=== PATIENT | male | born 1940 | race Caucasian/White ===

== ENCOUNTER 2017-12-30 17:12 | Emergency (ER) | payer MEDICARE, BC ==
[2017-12-30] MEDS ORDERED: Aspirin 81 MG Tab.Chew PO ONE (17:24)
[2017-12-30] MEDS ORDERED: Morphine 4 MG/ML Syringe IVPUSH PRN (17:24)
[2017-12-30] MEDS ORDERED: Clopidogrel 75 MG Tab PO ONE (17:24)
[2017-12-30] MEDS ORDERED: Sodium Chloride 0.9% 10 ML Syringe FLUSH PRN ×2 (17:24)
[2017-12-30] MEDS ORDERED: Heparin Sodium 5,000 Units/ML Vial IVPUSH ONE (17:24)
[2017-12-30] MEDS ORDERED: Metoprolol Tartrate 50 MG Tab PO ONE (17:24)
[2017-12-30] MEDS ORDERED: Heparin Sodium/D5W 25,000 UNITS/500 ML BAG IV SCH (17:30)
[2017-12-30] MEDS: Nitroglycerin 0.4 MG Tab.SL SL PRN ×2 (17:34→17:47)
--- NOTE | 2017-12-30 17:51 | EDM.PDOC ---
ED HPI GENERAL MEDICAL PROBLEM - General Chief Complaint: Chest Pain Stated Complaint: CHEST PAIN Time Seen by Provider: 12/30/17 17:23 Source of Information: Reports: Patient, Family, RN Notes Reviewed History Limitations: Reports: No Limitations - History of Present Illness INITIAL COMMENTS - FREE TEXT/NARRATIVE: 77-year-old gentleman presents to the emergency department today complaint of chest pressure, he is from [place] area had just completed a long trip had went to the bathroom sudden onset of chest pressure rated it 5 out of 10 he had radiations into both arms and up into the neck there was no shortness of breath no diaphoresis no nausea, past cardiac history includes atrial fibrillation status post ablation 2, dyslipidemia and hypertension. Some relief of the chest pressure with lying down Upper Chest Pain Score (Numeric/FACES): 5 - Related Data Allergies Allergy/AdvReac Type Severity Reaction Status Date / Time Penicillins Allergy Swelling Verified 12/30/17 17:46 Home Meds: Home Meds Aspirin [Rhianna Chewable] 81 mg PO DAILY 12/30/17 [History] Metoprolol Succinate 50 mg PO DAILY 12/30/17 [History] Niacin 500 mg PO BEDTIME 12/30/17 [History] [place]-3/DHA/Epa/Fish Oil [[place]-3 Fish Oil 1,200 MG Sfgl] 1,200 mg PO DAILY 05/09 [History] Pantoprazole 40 mg PO DAILY 12/30/17 [History] Sotalol [Betapace, Sorine] 80 mg PO BID 12/30/17 [History] amLODIPine Besylate [Amlodipine Besylate] 5 mg PO DAILY 12/30/17 [History] atorvaSTATin [Lipitor] 10 mg PO BEDTIME 12/30/17 [History] Past Medical History Cardiovascular History: Reports: Afib (Status post ablation), High Cholesterol, Hypertension Musculoskeletal History: Reports: Back Pain, Chronic Neurological History: Reports: Other (See Below) (Foot drop right side) Social & Family History - Tobacco Use Smoking Status *Q: Never Smoker ED ROS GENERAL - Review of Systems Review Of Systems: See Below Constitutional: Reports: No Symptoms Respiratory: Reports: No Symptoms Cardiovascular: Reports: Chest Pain GI/Abdominal: Reports: No Symptoms : Reports: No Symptoms Musculoskeletal: Reports: No Symptoms Skin: Reports: No Symptoms Neurological: Reports: Other (Radiations down both arms and into the neck) ED EXAM, GENERAL - Physical Exam Exam: See Below Exam Limited By: No Limitations General Appearance: Alert, Mild Distress Neck: Normal Inspection, Supple, Non-Tender, Full Range of Motion Respiratory/Chest: No Respiratory Distress, Lungs Clear, Normal Breath Sounds, No Accessory Muscle Use, Chest Non-Tender Cardiovascular: Regular Rate, Rhythm, No Murmur GI/Abdominal: Soft, Non-Tender EKG INTERPRETATION EKG Date: 12/30/17 Rhythm: NSR ST-T: Elevated Comparison: NA - No Prior EKG Course - Vital Signs Last Recorded V/S: Last Vital Signs Temp 98.4 F 12/30/17 17:14 Pulse 66 12/30/17 17:32 Resp 12 12/30/17 17:28 BP 127/78 12/30/17 17:47 Pulse Ox 98 12/30/17 17:28 - Orders/Labs/Meds Orders: Active Orders 24 hr Category Date Time Status EKG Documentation Completion [RC] ASDIRECTED Care 12/30/17 17:25 Ordered Peripheral IV Care [RC] . DIRECTED Care 12/30/17 17:25 Ordered Chest 1V Frontal [CR] Urgent Exams 12/30/17 17:25 Ordered Heparin Sodium/D5W [Heparin 25,000 Units in D5W 500 ML] Med 12/30/17 17:30 Ordered 25,000 units in 500 ml IV TITRATE Morphine Med 12/30/17 17:24 Ordered 4 mg IVPUSH Q10M PRN Nitroglycerin [Nitrostat] Med 12/30/17 17:24 Ordered 0.4 mg SL Q5M PRN Sodium Chloride 0.9% [Saline Flush] Med 12/30/17 17:24 Ordered 10 ml FLUSH ASDIRECTED PRN Sodium Chloride 0.9% [Saline Flush] Med 12/30/17 17:24 Ordered 10 ml FLUSH ASDIRECTED PRN Peripheral IV Insertion Adult [OM.PC] Stat Oth 12/30/17 17:24 Ordered EKG 12 Lead [EK] Stat Ther 12/30/17 17:24 Ordered Medication Orders Heparin Sodium/Dextrose (Heparin 25,000 Units In D5w 500 Ml) 25,000 units in 500 mls @ 0 mls/hr IV TITRATE JOSSELINE; Protocol Morphine Sulfate (Morphine) 4 mg IVPUSH Q10M PRN PRN Reason: Chest Pain Stop: 12/31/17 17:24 Nitroglycerin (Nitrostat) 0.4 mg SL Q5M PRN PRN Reason: Chest Pain Stop: 12/31/17 17:24 Last Admin: 12/30/17 17:34 Dose: 0.4 mg Sodium Chloride (Saline Flush) 10 ml FLUSH ASDIRECTED PRN PRN Reason: Keep Vein Open Sodium Chloride (Saline Flush) 10 ml FLUSH ASDIRECTED PRN PRN Reason: Keep Vein Open Meds: Medications Generic Name Dose Route Start Last Admin Trade Name Freq PRN Reason Stop Dose Admin Heparin Sodium/Dextrose 25,000 units in 500 mls @ 0 mls/hr 12/30/17 17:30 Heparin 25,000 Units In D5w 500 Ml IV TITRATE JOSSELINE Protocol 12 UNITS/KG/HR Morphine Sulfate 4 mg 12/30/17 17:24 Morphine IVPUSH 12/31/17 17:24 Q10M PRN Chest Pain Nitroglycerin 0.4 mg 12/30/17 17:24 12/30/17 17:47 Nitrostat SL 12/31/17 17:24 0.4 mg Q5M PRN Administration Chest Pain Sodium Chloride 10 ml 12/30/17 17:24 Saline Flush FLUSH ASDIRECTED PRN Keep Vein Open Sodium Chloride 10 ml 12/30/17 17:24 Saline Flush FLUSH ASDIRECTED PRN Keep Vein Open Discontinued Medications Generic Name Dose Route Start Last Admin Trade Name Fre[place]ler PRN Reason Stop Dose Admin Aspirin 324 mg 12/30/17 17:24 12/30/17 17:30 Aspirin PO 12/30/17 17:25 324 mg ONETIME ONE Administration Clopidogrel Bisulfate 600 mg 12/30/17 17:24 12/30/17 17:32 Plavix PO 12/30/17 17:25 600 mg ONETIME ONE Administration Heparin Sodium (Porcine) 0 units 12/30/17 17:24 12/30/17 17:31 Heparin Sodium IVPUSH 12/30/17 17:25 4,000 units .BOLUS ONE Administration Metoprolol Tartrate 25 mg 12/30/17 17:24 12/30/17 17:32 Lopressor PO 12/30/17 17:25 25 mg ONETIME ONE Administration Departure - Departure Time of Disposition: 17:47 Disposition: DC/Tfer to Acute Hospital 02 Reason for Transfer *Q: Primary PCI Indicated Condition: Fair Clinical Impression: STEMI (ST elevation myocardial infarction) Qualifiers: Involved coronary artery: right coronary artery Qualified Code(s): I21.11 - ST elevation (STEMI) myocardial infarction involving right coronary artery Referrals: PCP,None [Primary Care Provider] - Forms: ED Department Discharge Critical Care Note - Critical Care Note Total Time (mins): 20 - My Orders Last 24 Hours: My Active Orders 12/30/17 17:24 Morphine 4 mg IVPUSH Q10M PRN Nitroglycerin [Nitrostat] 0.4 mg SL Q5M PRN Sodium Chloride 0.9% [Saline Flush] 10 ml FLUSH ASDIRECTED PRN Sodium Chloride 0.9% [Saline Flush] 10 ml FLUSH ASDIRECTED PRN Peripheral IV Insertion Adult [OM.PC] Stat EKG 12 Lead [EK] Stat 12/30/17 17:25 EKG Documentation Completion [RC] ASDIRECTED Peripheral IV Care [RC] . DIRECTED Chest 1V Frontal [CR] Urgent 12/30/17 17:30 Heparin Sodium/D5W [Heparin 25,000 Units in D5W 500 ML] 25,000 units in 500 ml IV TITRATE - Assessment/Plan Last 24 Hours: My Active Orders 12/30/17 17:24 Morphine 4 mg IVPUSH Q10M PRN Nitroglycerin [Nitrostat] 0.4 mg SL Q5M PRN Sodium Chloride 0.9% [Saline Flush] 10 ml FLUSH ASDIRECTED PRN Sodium Chloride 0.9% [Saline Flush] 10 ml FLUSH ASDIRECTED PRN Peripheral IV Insertion Adult [OM.PC] Stat EKG 12 Lead [EK] Stat 12/30/17 17:25 EKG Documentation Completion [RC] ASDIRECTED Peripheral IV Care [RC] . DIRECTED Chest 1V Frontal [CR] Urgent 12/30/17 17:30 Heparin Sodium/D5W [Heparin 25,000 Units in D5W 500 ML] 25,000 units in 500 ml IV TITRATE Plan: Assessment Acuity = acute Site and laterality = ST elevation myocardial infarction Etiology = suspicious for underlying coronary artery disease Manifestations = angina Location of injury = Home Lab values = lab work is pending EKG shows ST elevations in II, III, and F aVF Plan Called and discussed case with Dr. Sparks embroidery finisher at kindly accepted the patient in transport will be transported via EMS ground he has been given aspirin, nitroglycerin, 600 mg of Plavix, 4000 unit bolus of heparin heparin drip will be initiated in route he has been given 25 mg of metoprolol This note was dictated using [employer] voice recognition software please call with any questions on syntax or grammar.
[2017-12-30] MEDS ORDERED: Heparin Sodium 5,000 Units/ML Vial IVPUSH PRN (17:56)
--- NOTE | 2017-12-31 09:23 | CR ---
CHEST: Portable CLINICAL HISTORY:Chest pain COMPARISON:None FINDINGS: Heart and pulmonary vascular appear normal. No infiltrates are seen. There are no pleural effusions. Impression: No acute cardiopulmonary process.
== END 2017-12-30 18:20 ==
LOC: JP.ED 17:12
DX: I21.11 ST elevation (STEMI) myocardial infarction involving right coronary artery (principal); I48.91 Unspecified atrial fibrillation; E78.00 Pure hypercholesterolemia, unspecified; I10 Essential (primary) hypertension; Z88.0 Allergy status to penicillin; Z79.899 Other long term (current) drug therapy; Z79.82 Long term (current) use of aspirin
CPT/HCPCS: 36415; 71045; 80053; 84484; 85025; 93005; 96374; 96375; 99285; A9270; J1644; J2270